=== PATIENT | male | born 1980 | race Caucasian/White ===

== ENCOUNTER 2017-03-14 15:02 | Emergency (ER) | payer BC ==
[2017-03-14] MEDS ORDERED: BACIGUENT PACKET TP ONE (15:20)
[2017-03-14] MEDS ORDERED: XYLOCAINE 1% HCL 20 ML MDV IJ ONE (15:20)
[2017-03-14] MEDS ORDERED: Adacel Vial IM ONE ×2 (15:20→15:32)
--- NOTE | 2017-03-14 15:26 | ERPHSYRPT ---
- History of Present Illness Time Seen by Provider: 03/14/17 15:17 Source: patient Exam Limitations: no limitations Patient Subjective Stated Complaint: PT REPORTS THAT WHILE WORKING HE HIT HIS LEFT KEENE ON A PIECE OF METAL FRAME-REPORTS LAC-DENIES NUMBNES SOR TINLGING- DENIES EXCESSIVE PAIN Triage Nursing Assessment: PT PINK WARM ET [id number] ALL QUESTIONS CORRECTLY-LAC NOTED OVER KEENE-BLEEDING CONTROLLED GREENHOUSE GROWER-PT AMBULATORY WITH NO LIMP NOTED Physician History: This is a 37-year-old white male arrives with complaint of laceration to his right mid keene symptoms for one hour he states he struck his keene on a piece of farm equipment he is not having any problems walking he does have approximately 2 cm laceration to the anterior keene which is gaping approximately one half centimeter. He denies any other complaints. Past medical history includes high blood pressure renal disease. Past surgical history is negative Method of Injury: direct blow (struck right keene on a piece of farm equi) Occurred: just prior to arrival (one hour prior to arrival) Quality: constant Severity of Pain-Max: mild Severity of Pain-Current: mild Lower Extremities Pain: leg: right Modifying Factors: Improves With: nothing Associated Symptoms: none Allergies/Adverse Reactions: No Known Drug Allergies Allergy (Unverified 03/14/17 15:13) Home Medications: Lisinopril 10 mg [Zestril 10 MG] 10 mg PO DAILY 03/14/17 [History] Hx Tetanus, Diphtheria Vaccination/Date Given: No Hx Influenza Vaccination/Date Given: No Hx Pneumococcal Vaccination/Date Given: No Immunizations Up to Date: Yes - Review of Systems Constitutional: No Fever, No Chills Eyes: No Symptoms Ears, Nose, & Throat: No Symptoms Respiratory: No Cough, No Dyspnea Cardiac: No Chest Pain, No Edema, No Syncope Abdominal/Gastrointestinal: No Abdominal Pain, No Nausea, No Vomiting, No Diarrhea Genitourinary Symptoms: No Dysuria Musculoskeletal: Other (2 cm laceration right keene) Skin: Other (2 cm laceration right keene) Neurological: No Dizziness, No Focal Weakness, No Sensory Changes Psychological: No Symptoms Endocrine: No Symptoms All Other Systems: Reviewed and Negative - Past Medical History Pertinent Past Medical History: Yes Cardiac History: Hypertension History: Renal Disease - Past Surgical History Past Surgical History: No - Social History Smoking Status: Never smoker Exposure to second hand smoke: No Drug Use: none Patient Lives Alone: No - Nursing Vital Signs Nursing Vital Signs: Initial Vital Signs Temperature 98.1 F 03/14/17 15:10 Pulse Rate 100 H 03/14/17 15:10 Respiratory Rate 18 03/14/17 15:10 Blood Pressure 132/82 03/14/17 15:10 O2 Sat by Pulse Oximetry 98 03/14/17 15:10 Pain Scale Pain Intensity 3 - Physical Exam General Appearance: alert Eyes, Ears, Nose, Throat Exam: moist mucous membranes Neck Exam: non-tender, supple Cardiovascular/Respiratory Exam: chest non-tender, normal breath sounds, regular rate/rhythm, no respiratory distress Gastrointestinal/Abdominal Exam: non-tender, guarding Back Exam: normal inspection, No vertebral tenderness Hips Exam: bilateral: non-tender, normal inspection, normal range of motion, no evidence of injury Legs Exam: right leg: normal range of motion, other (2 cm laceration right mid keene), left leg: non-tender, normal inspection, no evidence of injury Knees Exam: bilateral knee: non-tender, normal inspection, normal range of motion, no evidence of injury Ankle Exam: bilateral ankle: non-tender, normal inspection, normal range of motion, no evidence of injury Foot Exam: bilateral foot: non-tender, normal inspection, normal range of motion , no evidence of injury DTR - Lower Extremities Exam: ankle (R): 2+, ankle (L): 2+ Neuro/Tendon Exam: normal sensation, normal motor functions Mental Status Exam: alert, oriented x 3, cooperative Skin Exam: other (2 cm laceration right mid keene) SpO2 Interpretation: normal (98%) SpO2: 98 Oxygen Delivery: Room Air - Course Nursing assessment & vital signs reviewed: Yes Ordered Tests: Active Orders 24 hr Category Date Time Status Prepare for Sutures STAT Care 03/14/17 15:20 Active Sutures STAT Care 03/14/17 15:21 Active Wound Care STAT Care 03/14/17 15:20 Active Medication Summary Discontinued Medications Generic Name Dose Route Start Last Admin Trade Name Freq PRN Reason Stop Dose Admin Bacitracin 0.9 gm 03/14/17 15:20 03/14/17 15:33 Baciguent Packet TP 03/14/17 15:21 0.9 gm STAT ONE Administration Bacitracin Confirm 03/14/17 15:31 Baciguent Packet Administered 03/14/17 15:32 Dose 1 gm .ROUTE .STK-MED ONE Diphtheria/Tetanus/Acell Pertussis 0.5 ml 03/14/17 15:20 03/14/17 15:30 Adacel Vial IM 03/14/17 15:21 0.5 ml .ONCE ONE Administration Diphtheria/Tetanus/Acell Pertussis Confirm 03/14/17 15:32 Adacel Vial Administered 03/14/17 15:33 Dose 0.5 ml IM .STK-MED ONE Lidocaine HCl 5 ml 03/14/17 15:20 03/14/17 15:30 Xylocaine 1% Hcl 20 Ml Mdv IJ 03/14/17 15:21 5 ml STAT ONE Administration Lidocaine HCl Confirm 03/14/17 15:27 Xylocaine 1% Hcl 20 Ml Mdv Administered 03/14/17 15:28 Dose 1 ml .ROUTE .STK-MED ONE - Progress Progress: improved Progress Note: 03/14/17 15:47 Laceration repair 2 cm laceration right anterior keene. Laceration sterilely prepped and draped. Anesthetized with 1% lidocaine. No foreign bodies were noted. Laceration was repaired using 1 4. 0 Ethilon mattress suture.. And 2 4. 0 Ethilon interrupted sutures. - Departure Time of Disposition: 15:48 Departure Disposition: Home Clinical Impression: 2 cm laceration right keene Condition: Fair Critical Care Time: No Referrals: DOCTOR,NO FAMILY [Primary Care Provider] - Instructions: Care for a Laceration After Repair Additional Instructions: . Return home. Keep area clean and dry. Sutures out in 7-10 days. Follow-up with your family doctor or return if problems. Return for acute distress or for severe symptoms.
[2017-03-14] MEDS ORDERED: XYLOCAINE 1% HCL 20 ML MDV ONE (15:27)
[2017-03-14] MEDS ORDERED: BACIGUENT PACKET ONE (15:31)
[2017-03-14 16:00] VITALS: BP 124/59; PULSE 90; O2SAT 99
== END 2017-03-14 15:58 | disposition home or self-care (01) ==
LOC: ED 15:02
PROC: 0HQKXZZ Repair Right Lower Leg Skin, External Approach (ICD-10-PCS; principal; 2017-03-14)
DX: S81.811A Laceration without foreign body, right lower leg, initial encounter (principal); W26.8XXA Contact with other sharp object(s), not elsewhere classified, initial encounter
CPT/HCPCS: 12001; 90471; 90715; 99283; A9270-GY